=== PATIENT | female | born 1995 | race Hispanic/Latino ===

== ENCOUNTER 2018-09-12 19:13 | Emergency (ER) | payer MEDICAID, SELFPAY | END 2018-09-12 19:48 | disposition home or self-care (01) | LOC: ERS 19:13 | DX: M54.5 Low back pain (principal); W17.89XA Other fall from one level to another, initial encounter | CPT/HCPCS: 99283 ==

== ENCOUNTER 2024-04-17 15:11 | Inpatient (IN) | payer SELFPAY ==
[2024-04-17] MEDS ORDERED: EPINEPHrine 1 MG/ML VIAL ONE ×4 (15:24→15:39)
[2024-04-17] MEDS ORDERED: diphenhydrAMINE 50 MG/ML VIAL ONE (15:27)
[2024-04-17] MEDS ORDERED: Famotidine/PF 20 mg/2ml Vial ONE (15:27)
[2024-04-17] MEDS ORDERED: methylPREDNISolone Sod Succ/PF 125 MG/2 ML VIAL ONE (15:27)
[2024-04-17] MEDS ORDERED: EPINEPHrine 4 MG in Dextrose 5% in Water 250 ML IVP SCH (16:00)
[2024-04-17 16:07] LABS: #Basophils Less than 0.03 10x3/uL (0.0-0.2); #Eosinophils Less than 0.03 10x3/uL (0.0-0.7); %Eosinophils 0.3 % (0.0-10.0); %Lymphocytes 48.4 % (21.0-51.0); %Monocytes 9.6 % (0.0-10.0); %Neutrophils 41.6 % (42.0-75.0); Hemoglobin 8.3 g/dL (12.0-16.0); Mean Corpuscular HGB CONC 28.6 g/dL (32.0-36.0); Mean Corpuscular Hemoglobin 18.3 pg (27.0-31.0); Platelet Count 326 10x3/uL (130-400); RBC Distribution Width 19.5 % (11.5-14.5); Red Blood Cell (RBC) Count 4.53 mill/uL (4.20-5.40); Reflex for Review?? YES
[2024-04-17 16:15] LABS: ALT (SGPT) 21 U/L (8-55); AST (SGOT) 21 U/L (5-34); Albumin 3.4 g/dL (3.5-5.0); Alkaline Phosphatase 174 U/L (40-110); Anion Gap 14 mmol/L (10-20); BUN (Urea Nitrogen) 11 mg/dL (7.0-18.7); Bilirubin, Total 0.4 mg/dL (0.2-1.2); Calc. Creatinine Clearance 0 mL/min (70-130); Calcium 8.8 mg/dL (7.8-10.44); Carbon Dioxide 20 mmol/L (22-29); Chloride 109 mmol/L (98-107); Estimated GFR 132; Globulin 3.8 g/dL (2.4-3.5); Glucose 110 mg/dL (70-105); Potassium 3.7 mmol/L (3.5-5.1); Protein, Total 7.2 g/dL (6.0-8.3); Sodium 139 mmol/L (136-145)
[2024-04-17 16:33] LABS: Anisocytosis MODERATE=16-30 cells HPF (0-5); Burr Cells SLIGHT = 2-5 cells HPF (0-1); Hypochromia SLIGHT = 6-15 cells HPF (0-5); Microcytosis MODERATE=15-30 cells HPF (0-5); Ovalocytes SLIGHT = 2-5 cells HPF (0-1); Platelet Adequacy Comment Platelets Normal; Polychromasia SLIGHT = 2-3 cells HPF (0-2); Target Cells SLIGHT = 2-5 cells HPF (0-1)
[2024-04-17] MEDS ORDERED: Ondansetron PF 4 MG/2 ML Vial IVP PRN (16:44)
[2024-04-17 17:18] VITALS: BMI 31.6
[2024-04-17] MEDS ORDERED: methylPREDNISolone Sod Succ 40 MG VIAL IVP SCH (18:00)
[2024-04-17] MEDS ORDERED: diphenhydrAMINE 25 MG CAP PO SCH (18:00)
[2024-04-17] MEDS: diphenhydrAMINE 25 MG CAP PO SCH (19:57)
[2024-04-17] MEDS: methylPREDNISolone Sod Succ 40 MG VIAL IVP SCH (19:58)
[2024-04-17] MEDS: Famotidine 20 MG TAB PO SCH (19:58)
[2024-04-17] MEDS: Sodium Chloride 0.9% 500 ML IV SCH (22:39)
[2024-04-17] MEDS: Melatonin 3 MG TAB PO PRN (23:29)
[2024-04-18] MEDS: Acetaminophen 325 MG TAB PO PRN (00:21)
[2024-04-18] MEDS: FLU (Fluarix Triv) TS24-25(6MOS UP)/PF 45 MCG/0.5 ML Syringe IM ONE (08:44)
[2024-04-18 15:01] LABS: #Basophils Less than 0.03 10x3/uL (0.0-0.2); #Eosinophils Less than 0.03 10x3/uL (0.0-0.7); %Lymphocytes 12.8 % (21.0-51.0); %Monocytes 4.1 % (0.0-10.0); %Neutrophils 82.9 % (42.0-75.0); Hematocrit 27.3 % (36.0-47.0); Hemoglobin 7.6 g/dL (12.0-16.0); Mean Corpuscular HGB CONC 27.8 g/dL (32.0-36.0); Mean Corpuscular Hemoglobin 17.9 pg (27.0-31.0); Mean Corpuscular Volume 64.4 fL (78.0-98.0); Mean Platelet Volume 9.5 fL (7.4-10.4); Platelet Count 260 10x3/uL (130-400); RBC Distribution Width 19.7 % (11.5-14.5); Red Blood Cell (RBC) Count 4.24 mill/uL (4.20-5.40)
[2024-04-18 15:28] LABS: ALT (SGPT) 19 U/L (8-55); AST (SGOT) 15 U/L (5-34); Albumin 3.2 g/dL (3.5-5.0); Alkaline Phosphatase 145 U/L (40-110); Anion Gap 11 mmol/L (10-20); BUN (Urea Nitrogen) 9 mg/dL (7.0-18.7); Bilirubin, Total 0.3 mg/dL (0.2-1.2); Calc. Creatinine Clearance 238 mL/min (70-130); Calcium 9.1 mg/dL (7.8-10.44); Carbon Dioxide 18 mmol/L (22-29); Chloride 111 mmol/L (98-107); Estimated GFR 134; Globulin 3.5 g/dL (2.4-3.5); Glucose 152 mg/dL (70-105); Iron 10 ug/dL (50-170); Iron Binding Capacity, Total 390 mcg/dL (265-497); Potassium 4.3 mmol/L (3.5-5.1); Protein, Total 6.7 g/dL (6.0-8.3); Sodium 136 mmol/L (136-145); Transferrin, Serum 312 mg/dL (180-382)
[2024-04-18 15:54] VITALS: BP 144/76; TEMP 97.9
== END 2024-04-18 17:15 | disposition home or self-care (01) | DRG 916 ==
LOC: ERS 15:11 → CCU 16:16 → 2NO 04-18 09:56
PROVIDERS: ADMIT Internal Medicine; ATTEND Internal Medicine
DX: T78.2XXA Anaphylactic shock, unspecified, initial encounter (principal); I47.10 Supraventricular tachycardia, unspecified; D50.9 Iron deficiency anemia, unspecified; X58.XXXA Exposure to other specified factors, initial encounter
CPT/HCPCS: 36415; 80053; 82728; 83540; 83550; 84466; 85025; 85060; 93005; 96365; 96372; 96375; J0171; J1200; J2919; J3490; J7070